=== PATIENT | female | born 1985 | race Caucasian/White ===

== ENCOUNTER 2025-01-08 16:23 | Emergency (ER) | payer MEDICAID, SELFPAY ==
[2025-01-08 16:25] VITALS: BP 118/67
--- NOTE | 2025-01-08 16:41 | ED.MUSCINJ ---
HPI-Injury
General
Chief Complaint: Extremity Pain (non-traumatic)
Source: patient
Exam Limitations: none
Time Seen by Provider: 01/08/25 16:31
Nursing documentation reviewed up to this point in time: agreed with
History of Present Illness-Injury
Is this injury a work related problem?: No
Is pt an associate of [facility]/[place]?: No
Initial Injury comments:
Patient to ED with complaint of pain and swelling LLE, knee thru calf. She has had pain to knee for the past year but recently developed swelling and pain to knee and calf. Brought self to ED for eval. NO history of trauma. Denies fever/chills,
recent illness. NO erythema.
Past History
Past History
ED Past Medical History: None
ED Past Surgical History: None
Review of Systems
Review of Systems
Allergies reviewed?: Yes
All Other Systems: ROS reviewed and negative except as documented in HPI and ROS
Constitutional: Reports no symptoms
EENT: Reports no symptoms
Respiratory: Reports no symptoms
Cardiac: Reports no symptoms
ABD/GI: Reports no symptoms
Musculoskeletal: Reports joint pain (Pain and swellint left knee left calf)
Skin: Reports no symptoms
Neurological: Reports no symptoms
Psychiatric: Reports no symptoms
Musculoskeletal Injury Exam
Musculoskeletal Injury Exam
Left Knee:
Pain with Movement?: Moderate
Tender to palpation?: Moderate
Soft tissue swelling?: Mild
External deformity and angulation?: None
Joint effusion?: None
Contusion?: None
Hematoma-local bleeding into tissue?: None
Crepitus with movement?: No
Joint instability?: No
Malalignment/deformity?: No
Distal skin color and temperature: normal-warm & good color
Capillary Refill: normal
Normal distal neurovascular exam?: Yes
Left Calf:
Pain with Movement?: Mild
Tender to palpation?: Mild
Soft tissue swelling?: None
External deformity and angulation?: None
Joint effusion?: None
Contusion?: None
Hematoma-local bleeding into tissue?: None
Crepitus with movement?: No
Joint instability?: No
Malalignment/deformity?: No
Range of motion: Limited
Distal skin color and temperature: normal-warm & good color
Capillary Refill: normal
Normal distal neurovascular exam?: Yes
Peripheral Pulses: posterior tibial (left): 3+ and dorsalis pedis (left): 3+
Phy Exam
General Physical Exam
General Presentation: well appearing and no apparent distress
General age: appears stated age
General Skin: warm and dry
General Habitus: normal
General Mental: alert
General Hydration: appears well hydrated
Musculoskeletal Exam
Musculoskeletal Exam: no edema and neuro vasc intact
Skin Exam
Skin Exam: normal color, warm/dry and no rash
Psychiatric Exam
Psychiatric Exam: normal mood/affect
Injury Course
Orders/Labs/Results
Orders:
Orders
01/08/25 16:41
US Periph Venous LOWER Ext LT Urgent
Comment:
Reason For Exam: pain and swelling
01/08/25 18:18
Knee, Left 4 or More Views [CR Knee - Left 4 Or More View*] Urgent
Comment:
Reason For Exam: pain
01/08/25 19:34
Knee Immobilizer Left-Treatmen ONCE
01/08/25 19:36
Knee Immobilizer Left-Treatmen ONCE
*Critical Care Note
Total Time (30-74mins, 75-104mins- exclusive of procedures): Not Applicable
ED Attending Note
-
Portions of this chart may have been created with voice recognition software.� Occasional wrong word or��sound alike� substitutions may have occurred due to the inherent limitations of voice recognition software.
Discharge Plan
Departure
Patient Disposition: Home (Routine Discharge)
Date of Disposition: 01/08/25
Time of Disposition: 19:34
Patient with high blood pressure during this ER visit?: No
Condition: Good
Covid-19: Not Applicable
Discharge Problem:
Knee joint pain
Instructions: Knee Immobilizer (DC), Ibuprofen, Knee pain
Referrals:
NONE,* [Family Provider] -
Activity Restrictions/Additional Instructions:
Follow up with your orthopedic provider.
Interventions
Interventions:
*Risk Screen - Suicide Last Done: 01/08/25 18:15
*General Assessment Last Done: 01/08/25 18:15
*Neglect/Abuse Screening Last Done: 01/08/25 18:15
*ED- Fall Risk Assessment Last Done: 01/08/25 18:15
*ED COVID-19 Vaccine History Last Done: 01/08/25 18:15
*Nursing Disposition Last Done: 01/08/25 19:50
ED-Musculoskeletal Assessment Last Done: 01/08/25 17:03
ED-Peripheral Vascular Assessment Last Done: 01/08/25 17:03
ED-Skin Assessment Last Done: 01/08/25 17:03
Discharge Date and Time
Discharge Date/Time: 01/08/25 19:55
Print Language: Bol[place]ian
== END 2025-01-08 19:55 | disposition home or self-care (01) ==
LOC: EMR 16:23
PROVIDERS: EMERGENCY PHYSICIAN Emergency Medicine
DX: M25.562 Pain in left knee (principal); R22.42 Localized swelling, mass and lump, left lower limb
CPT/HCPCS: 99284; 73564; 93971

== ENCOUNTER → 2025-06-23 11:42 | Emergency (ER) | payer MEDICAID, SELFPAY ==
[2025-06-23 12:10] VITALS: BP 110/81
[2025-06-23 12:43] LABS: Hematocrit 37.1 % (37.0-47.0); Hemoglobin 12.5 g/dL (12.0-16.0); Mean Corp Hgb Conc. 33.7 g/dL (33.0-37.0); Mean Corpuscular Volume 91.4 fL (81.0-99.0); Nucleated Red Blood Cells % 0 %; Platelet Count 272 10^3/uL (130-400); Red Cell Dist. Width 11.9 % (11.5-14.5)
[2025-06-23 13:05] LABS: HCG, Serum Qualitative Screen Negative
[2025-06-23 13:14] LABS: ALT (SGPT) 13 U/L (0-35); AST (SGOT) 26 U/L (14-36); Albumin 4.3 g/dl (3.5-5.0); Alkaline Phosphatase 59 U/L (38-126); Blood Urea Nitrogen 14 mg/dl (7-17); Calcium 8.9 mg/dl (8.4-10.2); Carbon Dioxide 26 mmol/L (22-30); Chloride 105 mmol/L (98-107); Glucose 97 mg/dl (70-99); Potassium 4.3 mmol/L (3.5-5.1); Sodium 137 mmol/L (135-145); Total Protein 6.7 g/dl (6.3-8.2); eGFR > 60.00
[2025-06-23 13:18] LABS: Troponin I < 0.012 ng/ml
== END ==
LOC: EMR 11:42
PROVIDERS: Emergency Medicine
DX: R07.89 Other chest pain (principal); R06.02 Shortness of breath; F41.9 Anxiety disorder, unspecified
CPT/HCPCS: 80053; 84484; 84703; 85025; 93005

== ENCOUNTER 2025-06-23 19:43 | Emergency (ER) | payer SELFPAY ==
[2025-06-23 19:54] VITALS: BP 106/72
[2025-06-23 22:27] VITALS: BMI 18.3
--- NOTE | 2025-06-23 22:48 | ED.GENMED ---
History of Present Illness
General
Chief Complaint: Anxiety
Source: patient
Exam Limitations: none
Time Seen by Provider: 06/23/25 22:03
Nursing documentation reviewed up to this point in time: agreed with
History of Present Illness
History of Present Illness:
SEE MDM
Past History
Past History
ED Past Medical History: None
ED Past Surgical History: None
Social History
Alcohol: None
Drug: Cocaine and Other (meth)
Personal: Single
Review of Systems
Review of Systems
Allergies reviewed?: Yes
All Other Systems: Not applicable
Phy Exam
Physical Exam
Physical Exam:
GENERAL: Alert ,anxious
EYE: pupils equal and reactive
NECK: Supple, no meningimsu
ENT: o/p clr, mmm.
CARDIAC: Regular rate and rhythm .
LUNGS: Clear breath sounds bilaterally, no acute respiratory distress, no wheezes/rales/rhonchi
ABDOMEN: Soft, without focal tenderness, no r/g, no cvat, normal bowel sounds
NEUROLOGICAL: Alert and oriented, no focal neuro deficits
SKIN: Warm and dry, skin intact. few small red hoyt on hands; no cellulitis;
MUSCULOSKELETAL: No edema, well perfused. neg amadou's sign
PSYCH: anxious, tearful at times; but redirectable;
Patient was holding a baby bird in her hands and feeding it, that she had brought this with her and a lunch box container and was covering it with a blanket
Course
Orders/Labs/Results
Orders:
Orders
06/23/25 22:26
Electrocardiogram (*1) Urgent
Reason for Study: Chest Pain
EKG- Treatment ONCE
06/23/25 22:30
Rabies Vaccine (Pcec)/Pf [Rabavert Rabies Vacc W-Diluent] 2.5 unit IM .ONCE ONE
06/23/25 22:35
Rabies Immune Globulin/Pf [HyperRAB] 1,000 unit IM NOW STA
Vital Signs
Initial and Last Documented VS:
Initial Vital Signs
Pulse Resp BP Pulse Ox
75 18 106/72 98
06/23/25 19:54 06/23/25 19:54 06/23/25 19:54 06/23/25 19:54
Last Documented Vital Signs
Temp Pulse Resp BP Pulse Ox
36.7 C 75 18 106/72 98
06/23/25 22:27 06/23/25 19:54 06/23/25 19:54 06/23/25 19:54 06/23/25 22:48
MDM/Problems Addressed
Differential Diagnosis Includes:
see MDM
MDM/Problems Addressed:
Note:
CHIEF COMPLAINT(S)
Concern about potential rabies exposure and substance use.
HISTORY OF PRESENT ILLNESS
The patient, female, presents with concerns regarding potential exposure to rabies after being bitten by raccoons. She has been caring for raccoons for the past 3 months near her chicken coop. The patient reports having been bitten multiple times
but notes that none of the animals have shown overt signs of rabies, such as foaming from the mouth or unusual aggression.
The patient expresses significant anxiety about rabies, which has led to her seeking medical attention. She admits to consuming tequila and smoking cocaine and meth as a coping mechanism for her stress. Furthermore, she has expressed concern about
her overall substance use, including cocaine use, which she feels is impacting her health and wellbeing. but he does not wish to speak with [facility]; she denies SI/HI
she brought a bird with her and is petting and feeding the small bird (sparrow)
pt has no headache, fevre, hcills, confusion, nekc stiffness,
she was here earlier this am but LWBS; had labs/ekg at that time
she feels anxious still and is tearful
denies current cp
The patient has been educated about the need for rabies vaccination due to her potential exposure risks. She is concerned about the implications of rabies but is reassured about the treatment plan, which includes starting the rabies vaccination
series today, with follow-up doses prescribed over subsequent weeks.
SOCIAL DETERMINANTS AFFECTING HEALTH
The patient has current issues with substance use, including alcohol and cocaine. She is aware of the negative impact this has on her health and expresses a desire for assistance with these issues. She is also experiencing significant stress related
to these factors in her living environment.
PHYSICAL EXAM
- Nursing notes reviewed and vital signs reviewed.
- The patient appears anxious but is awake and alert.
PLAN
- Initiate rabies vaccination series today, with schedules for follow-up doses over the next few weeks.
- The patient was advised to contact the health department regarding managing raccoons safely and potential rabies control in the area.
- Discussion regarding substance use and its effects was held, with recommendations for substance use counseling and through available services such as counseling or rehabilitation programs.
- An electrocardiogram (ECG) will be performed to ensure cardiac health.
- Review recent bloodwork results when available.
- Encourage the patient to consider contacting community support services for additional help with substance use and associated anxiety.
DIFFERENTIAL DIAGNOSIS
The Differential Diagnosis includes, in no particular order and is not limited to:
1. Rabies exposure
2. Alcohol use disorder
3. Cocaine use disorder
4. Anxiety disorder
5. Substance-induced mood disorder
6. Post-traumatic stress disorder
7. Generalized anxiety disorder
8. Depression
9. Obsessive-compulsive disorder (due to repetitive behaviors and anxiety)
10. Rabies vaccine-related side effects (related to impending administration of the rabies vaccine)
CARE-UPDATE
06/23/25 - 23:39
Blood work, including complete blood count and kidney markers, as well as EKG results, are normal. FROM THIS MORNING'S VISIT;
Patient is scheduled to receive rabies shots on , the following Monday, and the subsequent week on Monday at the infusion center, with details provided in writing. No expected adverse reactions to the rabies shots aside from potential minor
redness at the site.
*Pulse Oximetry
SaO2: 98
Oxygen Mode of Delivery: Room air
Patient hypoxic: no (98)
*Critical Care Note
Total Time (30-74mins, 75-104mins- exclusive of procedures): Not Applicable
ED Attending Note
-
Portions of this chart may have been created with voice recognition software.� Occasional wrong word or��sound alike� substitutions may have occurred due to the inherent limitations of voice recognition software.
Discharge Plan
Departure
Patient Disposition: Home (Routine Discharge)
Patient with high blood pressure during this ER visit?: No
Condition: Fair
Covid-19: Not Applicable
Discharge Problem:
Rabies exposure
Instructions: Anxiety, Adult (DC), Rabies Vaccine CDC Vaccine Information Statement (VIS)
Prescriptions:
New
rabies vacc,human diploid (PF) 2.5 unit recon soln
See Rx Instructions .ROUTE .COMPLEX Qty: 3 0RF
Rx Instructions:
2.5 unit intramuscularly on 06/26, 06/30, 07/07
Referrals:
NONE,* [Family Provider, Internal Medicine]
Stand Alone Forms: Rabies Vaccine Post Exp Dosing
Activity Restrictions/Additional Instructions:
Your rabies vaccine series was initiated. You should call the health department regarding the raccoon infestation
You should return to the infusion center on 8�21, 06-30 and 07-07 for further vaccination to complete the series.
You should avoid methamphetamine and cocaine use as this can make anxiety worse and cause longer-term effects. If you need help sleeping you can try melatonin.
Return for any emergencies
Interventions
Interventions:
*Risk Screen - Suicide Last Done: 06/23/25 19:58
*General Assessment Last Done: 06/23/25 22:28
*Neglect/Abuse Screening Last Done: 06/23/25 19:58
*ED- Fall Risk Assessment Last Done: 06/23/25 22:28
*ED COVID-19 Vaccine History Last Done: 06/23/25 22:28
*Nursing Disposition Last Done: 06/23/25 23:55
ED-Psychological Assessment Last Done: 06/23/25 22:28
Discharge Date and Time
Discharge Date/Time: 06/24/25 00:00
Print Language: British
[2025-06-23] MEDS: RABAVERT RABIES VACC W-DILUENT 2.5 UNIT IM (23:42)
== END 2025-06-24 | disposition home or self-care (01) ==
LOC: EMR 19:43
PROVIDERS: EMERGENCY PHYSICIAN Emergency Medicine
DX: Z20.3 Contact with and (suspected) exposure to rabies (principal); Z23 Encounter for immunization; F41.9 Anxiety disorder, unspecified; F17.200 Nicotine dependence, unspecified, uncomplicated
CPT/HCPCS: 99283; 90471; 96372; 90375; 90675; 93005

== ENCOUNTER 2025-06-30 16:23 | Outpatient (RCR) | payer MEDICAID, SELFPAY ==
[2025-06-26 11:45] VITALS: BP 117/67
[2025-06-26] MEDS: RABAVERT RABIES VACC W-DILUENT 2.5 UNIT IM (12:12)
[2025-06-26 12:30] VITALS: BP 104/66
[2025-06-30 16:27] VITALS: BP 95/58
[2025-06-30] MEDS: RABAVERT RABIES VACC W-DILUENT 2.5 UNIT IM (16:32)
== END 2025-07-01 10:49 | disposition home or self-care (01) ==
LOC: OID 16:23
PROVIDERS: ATTENDING PHYSICIAN Physician Assistant
DX: Z20.3 Contact with and (suspected) exposure to rabies (principal); Z23 Encounter for immunization; F19.10 Other psychoactive substance abuse, uncomplicated; F10.14 Alcohol abuse with alcohol-induced mood disorder
CPT/HCPCS: 90471; 90675

== ENCOUNTER 2025-07-08 16:04 | Emergency (ER) | payer SELFPAY ==
[2025-07-08 16:19] VITALS: BP 120/81
--- NOTE | 2025-07-08 16:56 | ED.GENMED ---
History of Present Illness
General
Chief Complaint: Rabies
Source: patient
Exam Limitations: none
Time Seen by Provider: 07/08/25 16:45
Nursing documentation reviewed up to this point in time: agreed with
History of Present Illness
History of Present Illness:
Patient to ED for her fourth rabies vaccination. She had an appointment at [facility] but unfortunately was late and department closed before she was able to receive vaccine. Brought self to ED for vaccine
Past History
Past History
ED Past Medical History: None
ED Past Surgical History: None
Social History
Alcohol: None
Drug: Cocaine and Other (meth)
Personal: Single
Review of Systems
Review of Systems
Allergies reviewed?: Yes
All Other Systems: ROS reviewed and negative except as documented in HPI and ROS
Constitutional: Reports no symptoms
Musculoskeletal: Reports no symptoms
Skin: Reports no symptoms
Neurological: Reports no symptoms
Psychiatric: Reports no symptoms
Phy Exam
General Physical Exam
General Presentation: well appearing and no apparent distress
General age: appears stated age
General Skin: warm and dry
General Habitus: normal
General Mental: alert
Neurological Exam
Neurological Exam: alert and oriented x3
Musculoskeletal Exam
Musculoskeletal Exam: full ROM
Skin Exam
Skin Exam: normal color
Psychiatric Exam
Psychiatric Exam: normal mood/affect
Course
Orders/Labs/Results
Orders:
Orders
07/08/25 16:51
Rabies Vaccine (Pcec)/Pf [Rabavert Rabies Vacc W-Diluent] 2.5 unit IM .ONCE ONE
Vital Signs
Initial and Last Documented VS:
Initial Vital Signs
Temp Pulse Resp BP Pulse Ox
98.0 F 79 16 120/81 98
07/08/25 16:19 07/08/25 16:19 07/08/25 16:19 07/08/25 16:19 07/08/25 16:19
Last Documented Vital Signs
Temp Pulse Resp BP Pulse Ox
98.0 F 79 16 120/81 98
07/08/25 16:19 07/08/25 16:19 07/08/25 16:19 07/08/25 16:19 07/08/25 16:19
*Pulse Oximetry
SaO2: 98
Oxygen Mode of Delivery: Room air
Patient hypoxic: no
*Critical Care Note
Total Time (30-74mins, 75-104mins- exclusive of procedures): Not Applicable
ED Attending Note
-
Portions of this chart may have been created with voice recognition software.� Occasional wrong word or��sound alike� substitutions may have occurred due to the inherent limitations of voice recognition software.
Discharge Plan
Departure
Patient Disposition: Home (Routine Discharge)
Date of Disposition: 07/08/25
Time of Disposition: 16:51
Patient with high blood pressure during this ER visit?: No
Condition: Good
Covid-19: Not Applicable
Discharge Problem:
Need for rabies vaccination
Instructions: Rabies Vaccine
Prescriptions:
No Action
rabies vacc,human diploid (PF) 2.5 unit recon soln
See Rx Instructions .ROUTE .COMPLEX Qty: 3 0RF
Rx Instructions:
2.5 unit intramuscularly on 06/26, 06/30, 07/07
Activity Restrictions/Additional Instructions:
follow up with your family doctor
Interventions
Interventions:
*Risk Screen - Suicide Last Done: 07/08/25 16:19
*Neglect/Abuse Screening Last Done: 07/08/25 16:19
Discharge Date and Time
Print Language: [place] Leone[place]
[2025-07-08] MEDS: RABAVERT RABIES VACC W-DILUENT 2.5 UNIT IM (17:41)
== END 2025-07-08 18:37 | disposition home or self-care (01) ==
LOC: EMR 16:04
PROVIDERS: EMERGENCY PHYSICIAN Emergency Medicine
DX: Z20.3 Contact with and (suspected) exposure to rabies (principal); Z23 Encounter for immunization
CPT/HCPCS: 99282; 90471; 90675